=== PATIENT | female | born 1995 | race Caucasian/White ===

== ENCOUNTER 2018-08-05 05:34 | Inpatient (IN) | payer OTHER ==
--- NOTE | 2018-08-04 20:42 | HP ---
ADMISSION DIAGNOSIS: 1. 37-week and 5-day intrauterine with dichorionic diamniotic twins for primary low-transverse section. 2. Stenosis of the right carotid artery. 3. Agenesis of the left kidney. HISTORY OF PRESENT ILLNESS: Jared is a 22-year-old white female, primigravida patient, with an uncomplicated dichorionic diamniotic twin , presenting at 37 weeks and 5 days for primary section. Noted the patient had spontaneous recurrence of twin gestation, which was diagnosed at 7 weeks' gestation by ultrasound with an EDC based on this ultrasound on 08/21/2018. Noted her LMP was 10/31/2017. She has had multiple ultrasounds done with [facility] as well as consultation, and noted excellent growth of both babies with normal S/D ratios, umbilical artery Dopplers. Normal RE continued well throughout the and had recommended delivery between 37 and 38 weeks' gestation. PAST MEDICAL HISTORY: Complicated by history of vesicoureteral reflux with agenesis of the left kidney as well as diagnosis of stenosis of right carotid artery noted as a child, but has remained asymptomatic and has had no treatment for this. No other previous hospitalizations or surgery. FAMILY HISTORY: Insignificant. Mother and father were living and healthy. SOCIAL HISTORY: She has never smoked. She does not drink alcohol or smoke cigarettes. She is a first breaker feeder and is currently . MEDICATIONS: Include: 1. vitamins. 2. Benadryl p.r.n. 3. Macrobid one daily, taking prophylactically due to agenesis of the kidney. ALLERGIES: SHE HAS NO KNOWN DRUG ALLERGIES. PHYSICAL EXAMINATION: Done on 08/04/2018. GENERAL: She is alert and oriented, in no apparent distress. HEENT: Oropharynx without erythema. NECK: Supple without lymphadenopathy. No JVD. LUNGS: Clear to auscultation. CARDIOVASCULAR: Regular rate and rhythm without murmur. ABDOMEN: Soft with a gravid uterus. Fundal height 43 cm. FHT for twin A is 160 and twin B 150. : Deferred at this time. EXTREMITIES: Noted she does have 2+ edema of her ankles and feet. SIGNIFICANT LABORATORY DATA: Include RPR nonreactive. Rubella nonimmune. HIV negative. Hepatitis B surface antigen negative. GBS negative. Hemoglobin done on 05/25/2018 of 11.3. ASSESSMENT: 1. 37-week and 5-day intrauterine with diamniotic dichorionic twin uncomplicated . 2. Stenosis of the right carotid artery, normal left carotid artery. 3. History of vesicoureteral reflux, repaired by Surgery. PLAN: Consult had been obtained as well as an echocardiogram with Dr. Mantilla, the outpatient case manager, who had recommended that she proceed with a for delivery due to the single carotid artery. Discussed risks, benefits, and alternatives with the patient and planned for primary section on 08/05/2018. Job ID: [id number]
[2018-08-05] MEDS ORDERED: MORPHINE 5 MG/10 ML PF VIAL ONE ×2 (06:29→08:13)
[2018-08-05] MEDS ORDERED: Ketorolac Tromethamine 30 MG/ML VIAL ONE ×4 (06:30→09:45)
[2018-08-05] MEDS ORDERED: PHENYLEPHRINE-NS 100 MCG/ML 10 ML SYRINGE ONE ×2 (06:30→09:45)
[2018-08-05] MEDS ORDERED: Oxytocin 10 UNITS/ML VIAL ONE ×3 (06:30→09:27)
[2018-08-05] MEDS ORDERED: Ondansetron PF 4 MG/2 ML Vial ONE ×4 (06:30→09:45)
[2018-08-05] MEDS ORDERED: Dexamethasone 4 mg/ml Vial ONE (06:30)
[2018-08-05] MEDS ORDERED: diphenhydrAMINE 50 MG/ML VIAL ONE (06:30)
[2018-08-05 06:35] VITALS: BMI 29.0
[2018-08-05] MEDS ORDERED: Bicitra 30 ML UDCUP ONE (07:20)
[2018-08-05] MEDS ORDERED: CEFAZOLIN 2 GM in Premix Bag 1 BAG IVPB SCH (07:34)
[2018-08-05] MEDS ORDERED: Lactated Ringer's 1,000 ML IV SCH ×2 (07:34→11:31)
[2018-08-05] MEDS ORDERED: Promethazine HCl 25 MG/ML VIAL IM PRN ×2 (07:34→09:25)
[2018-08-05] MEDS ORDERED: Ondansetron PF 4 MG/2 ML Vial IVP PRN ×3 (07:34→11:31)
[2018-08-05] MEDS ORDERED: Bicitra 30 ML UDCUP PO SCH (07:34)
[2018-08-05 07:46] LABS: Hemoglobin 13.1 g/dL (12.0-16.0); Mean Corpuscular HGB CONC 33.6 g/dL (32.0-36.0); Mean Corpuscular Hemoglobin 33.5 pg (27.0-31.0); Mean Corpuscular Volume 99.7 fL (78.0-98.0); Mean Platelet Volume 8.8 fL (7.4-10.4); Platelet Count 170 thou/uL (130-400); RBC Distribution Width 12.7 % (11.5-14.5); Red Blood Cell (RBC) Count 3.89 mill/uL (4.20-5.40); White Blood Cell (WBC) Count 8.6 thou/uL (4.8-10.8)
[2018-08-05] MEDS ORDERED: ePHEDrine/0.9% NaCl/PF SYRINGE 50 mg/10 ml ONE (08:14)
[2018-08-05 08:17] LABS: Syphilis Antibody Nonreactive (Nonreactive); Syphilis Antibody Index 0.03 S/CO (<1.00 Non-Reactive)
[2018-08-05 08:18] LABS: HBSAg Index 0.28 S/CO (0-0.99); Hep B Surf Ag Non-Reactive S/CO (NonReactive)
[2018-08-05] MEDS ORDERED: diphenhydrAMINE 50 MG/ML VIAL IVP PRN (09:25)
[2018-08-05] MEDS ORDERED: HYDROmorphone 2 MG/ML VIAL SLOW IVP PRN (09:25)
[2018-08-05] MEDS ORDERED: L&D-Morphine 4 MG/ML VIAL SLOW IVP PRN (09:25)
[2018-08-05] MEDS ORDERED: Eucerin (Mineral Oil/Petrolatum,White) 30 gm Jar TOP PRN (09:25)
[2018-08-05] MEDS ORDERED: Naloxone HCl 0.4 mg/ml Vial IVP PRN ×2 (09:25)
[2018-08-05] MEDS ORDERED: Meperidine HCl/PF 25 MG/ML VIAL SLOW IVP PRN (09:25)
[2018-08-05] MEDS ORDERED: Ondansetron HCl/PF 4 MG/2 ML Vial IVP PRN (09:25)
[2018-08-05] MEDS ORDERED: Naloxone HCl 0.4 mg/ml Vial IV PRN (09:25)
[2018-08-05] MEDS ORDERED: Promethazine HCl 25 MG SUPP PR PRN (09:25)
[2018-08-05] MEDS ORDERED: Ketorolac Tromethamine 30 MG/ML VIAL IVP SCH (09:30)
[2018-08-05] MEDS ORDERED: Communication Order-Pharmacy FS SCH (09:30)
[2018-08-05] MEDS ORDERED: Dexamethasone 20 MG/5 ML VIAL ONE (09:45)
[2018-08-05] MEDS ORDERED: ePHEDrine 50 MG/ML VIAL ONE (09:45)
[2018-08-05 10:40] LABS: HIV (1/2) Antibody/Antigen Non-Reactive (NonReactive); HIV 1/2 INDEX 0.11 S/CO (<1.00)
[2018-08-05] MEDS ORDERED: Bisacodyl 10 MG SUPP PR PRN (11:31)
[2018-08-05] MEDS ORDERED: Acetaminophen 325 MG TAB PO PRN (11:31)
[2018-08-05] MEDS ORDERED: diphenhydrAMINE 25 MG CAP PO PRN (11:31)
[2018-08-05] MEDS ORDERED: Lanolin Ointment 7 GM TUBE TOP PRN (11:31)
[2018-08-05] MEDS: Ibuprofen 800 MG TAB PO SCH (13:19)
[2018-08-05] MEDS: Ketorolac Tromethamine 30 MG/ML VIAL IVP PRN ×2 (13:30→20:22)
--- NOTE | 2018-08-05 15:56 | OP ---
DATE OF PROCEDURE: 08/05/2018 PREOPERATIVE DIAGNOSIS: A 37 week and 5 day intrauterine diamniotic dichorionic twin gestation. POSTOPERATIVE DIAGNOSIS: A 37 week and 5 day intrauterine diamniotic dichorionic twin gestation, status post delivery. PROCEDURE PERFORMED: Primary low-transverse section. ASSISTANTS: 1. Triston Yo MD. 2. Luciano Buckley MD. ANESTHESIA: Spinal anesthetic. DESCRIPTION OF PROCEDURE: After adequate spinal anesthetic, the patient was placed in the supine position. A Garcia catheter was placed. The abdomen was prepped and draped in the usual sterile technique. A Pfannenstiel incision was made in the inferior aspect of the abdomen. Subcutaneous tissue opened with sharp dissection, fascia opened with sharp dissection. Peritoneum opened with sharp and blunt dissection and noted that the abdomen was still with a gravid uterus. A bladder blade was placed and a low transverse incision was made on the uterus. Membranes were ruptured and clear fluid was encountered and baby A delivered from vertex presentation without difficulty. breathed and cried spontaneously. Cord was clamped and cut, and the was handed to the care of the Neonatology Team. Membranes were again ruptured for delivery of baby B, noted to delivered from vertex presentation without difficulty. Infant breathed and cried spontaneously. Cord was clamped and cut, and the infant was handed to the care of the Neonatology Team. Cord blood was obtained from each umbilical cord and additional clamp was placed over the cord for baby A. Placenta was delivered x2, appeared intact. A wet lap was used to wipe clean the uterus. Uterus was taken external to the abdominal cavity and wet lap was placed over the uterus. Bladder blade was replaced and the hysterotomy was closed in continuous fashion using 1 Monocryl suture. Hemostasis was adequate. A second layer was placed for imbrication. Again, hemostasis was noted to be adequate. There were no blood clots in the gutters. Uterus was replaced into the abdominal cavity. Gutters were again checked. There was no further bleeding and the peritoneum was then closed in continuous fashion using 2-0 chromic. Fascia was closed in continuous fashion using 0 Vicryl. Sponge and instrument counts were correct. Few bleeders were cauterized after irrigation of subcutaneous tissue and skin was then closed using caryl. There was an additional small pedunculated fleshy mole anterior to the incision site, this had been discussed with the patient and consent was signed previously for removal. This was excised with a sharp blade and cauterized for hemostasis and dressing was applied. The patient to go to recovery room in good condition. Estimated blood loss approximately 500 mL, QBL is pending. Noted that baby A is a viable female infant, weight 5 pounds and 12 ounces, Apgars 8 at one minute and 9 at five minutes. Baby B is a viable female , weight 5 pounds and 9 ounces, Apgars 8 at one minute and 9 at five minutes. Job ID: [id number]
[2018-08-05] MEDS: Simethicone Chewable 80 MG TAB PO PRN (20:26)
[2018-08-06] MEDS: Docusate Calcium (SURFAK) 240 MG CAP PO SCH ×3 (01:06→20:21)
[2018-08-06] MEDS: Ferrous Sulfate 325 MG TAB PO SCH ×3 (01:06→20:21)
[2018-08-06] MEDS: Ibuprofen 800 MG TAB PO SCH ×4 (01:06→20:21)
[2018-08-06] MEDS: Ketorolac Tromethamine 30 MG/ML VIAL IVP PRN (04:47)
[2018-08-06 06:27] LABS: Mean Corpuscular HGB CONC 35.4 g/dL (32.0-36.0); Mean Corpuscular Hemoglobin 35.3 pg (27.0-31.0); Mean Corpuscular Volume 99.9 fL (78.0-98.0); Mean Platelet Volume 8.1 fL (7.4-10.4); Platelet Count 122 thou/uL (130-400); RBC Distribution Width 12.4 % (11.5-14.5); Red Blood Cell (RBC) Count 3.11 mill/uL (4.20-5.40); White Blood Cell (WBC) Count 12.6 thou/uL (4.8-10.8)
--- NOTE | 2018-08-06 07:08 | PDOC.PP ---
Post Progress Note Post Day #: 1 Subjective: Pt resting in bed. Pt reports pain being well controlled at this time. Pt has not gotten up and moved much yet. Pt reports tolerating PO last night. Passing gas. Pt reports some heavy vaginal bleeding. Pt reports some mild leg swelling bilaterally which was there prior to delivery. Denies any chest pain, SOB. Denies any headache, lightheadness or dizziness. Denies any nausea or vomiting. PO intake tolerated: yes Flatus: yes Ambulation: yes Vital Signs (12 hours) Temp Pulse Resp BP Pulse Ox 08/06/18 05:23 98.1 F 57 L 18 110/58 L 08/05/18 23:45 98.0 F 55 L 17 111/56 L 08/05/18 20:00 98.1 F 57 L 18 115/60 99 Weight Weight 81.647 kg - Physical Examination General: NAD Cardiovascular: no m/r/g, RRR Respiratory: clear to auscultation bilaterally, non-labored breathing Abdominal: + bowel sounds, lochia (Reported as a heavier than normal period), no distention, appropriately TTP Fundus firm & at: Umbilicus Extremities: negative homans (B) Skin: CS incision dry & intact (Dry. Dressing intact. No sign of bleeding or drainage. Appropriately TTP.), no rash Result Diagrams: 08/06/18 06:14 Additional Labs: Post Labs Blood Type O POSITIVE 08/05/18 07:52 Hep Bs Antigen Non-Reactive S/CO (NonReactive) 08/05/18 06:29 (1) delivery delivered Code(s): O82 - ENCOUNTER FOR DELIVERY WITHOUT INDICATION Status: Acute (2) Kidney agenesis Code(s): Q60.2 - RENAL AGENESIS, UNSPECIFIED Status: Acute (3) Carotid stenosis, right Code(s): I65.21 - OCCLUSION AND STENOSIS OF RIGHT CAROTID ARTERY Status: Acute - Assessment/Plan 22 yo F delivered dichorionic diamniotic twins @ 37.5 weeks via primary C- section. Post Op -continue routine post care -Pain well controlled at this time. Continue current pain regimen -- continue counseling and assistance. May consider customer consultant -Reports heavy lochia. Uterus firm and at umbilicus. continue to monitor. H&H stable this morning. L. Kidney Agenesis -Continue home abx prophylaxis. -Continue to encourage PO hydration Stenosis R. carotid Artery -stable
[2018-08-06] MEDS: HYDROcodone/Acetaminophen 5/325 mg Tablet PO PRN (09:57)
[2018-08-06] MEDS: Prenatal Vitamin 1 TAB PO SCH (09:57)
[2018-08-06] MEDS: Simethicone Chewable 80 MG TAB PO PRN ×2 (11:53→18:36)
[2018-08-06] MEDS: Acetaminophen/Codeine 30-300mg Tablet PO PRN (18:36)
[2018-08-07] MEDS: Acetaminophen/Codeine 30-300mg Tablet PO PRN ×4 (05:26→23:59)
[2018-08-07] MEDS: Ibuprofen 800 MG TAB PO SCH ×3 (05:26→21:24)
--- NOTE | 2018-08-07 07:22 | PDOC.PP ---
Post Progress Note Post Day #: 2 Subjective: Pt resting in bed. Pt reports having some increased pain with movement. Pt reports when she has pain medication it is well controlled. Pt reports getting up and walking around and taking a shower. Reports doing well. Tolerating PO. Reports passing gas. Denies BM. Pt reports lochia is getting process helper. Denies any chest pain or SOB. Reports swelling has resolved in legs. No other concerns or complaints at this time. PO intake tolerated: yes Flatus: yes Ambulation: yes Vital Signs (12 hours) Temp Pulse Resp BP Pulse Ox 08/07/18 05:20 97.5 F L 50 L 16 112/56 L 96 08/06/18 20:00 98.0 F 56 L 18 111/65 99 Weight Weight 81.647 kg - Physical Examination General: NAD Cardiovascular: no m/r/g, RRR Respiratory: clear to auscultation bilaterally, non-labored breathing Abdominal: + bowel sounds, lochia (Reports process helper than period at this time.), no distention, appropriately TTP Fundus firm & at: Below Umbilicus Extremities: negative homans (B) Skin: CS incision dry & intact (No drainage, bleeding or redness noted.), no rash Neurological: no gross focal deficits Psychiatric: A&Ox3, normal affect Result Diagrams: 08/06/18 06:14 Additional Labs: Post Labs Blood Type O POSITIVE 08/05/18 07:52 Hep Bs Antigen Non-Reactive S/CO (NonReactive) 08/05/18 06:29 (1) delivery delivered Code(s): O82 - ENCOUNTER FOR DELIVERY WITHOUT INDICATION Status: Acute (2) Kidney agenesis Code(s): Q60.2 - RENAL AGENESIS, UNSPECIFIED Status: Acute (3) Carotid stenosis, right Code(s): I65.21 - OCCLUSION AND STENOSIS OF RIGHT CAROTID ARTERY Status: Acute - Assessment/Plan 22 yo F delivered dichorionic diamniotic twins @ 37.5 weeks via primary C- section on 08/05/18. Post Op -continue routine post care -Pain well controlled at this time. Continue current pain regimen -Continue recommending ambulation. -- continue counseling and assistance. -Reports Light lochia. Uterus firm below umbilicus continue to monitor. H&H stable this morning. -Discussed routine incisional care and weight restrictions. L. Kidney Agenesis -Continue home abx prophylaxis. -Continue to encourage PO hydration Stenosis R. carotid Artery -stable
[2018-08-07] MEDS: Prenatal Vitamin 1 TAB PO SCH (09:28)
[2018-08-07] MEDS: Docusate Calcium (SURFAK) 240 MG CAP PO SCH ×2 (09:28→21:24)
[2018-08-07] MEDS: Nitrofurantoin Monohyd/M-Cryst 100 MG CAP PO SCH ×2 (09:28→21:24)
[2018-08-07] MEDS: Ferrous Sulfate 325 MG TAB PO SCH (09:29)
[2018-08-07] MEDS: Simethicone Chewable 80 MG TAB PO PRN (13:59)
--- NOTE | 2018-08-08 00:38 | PDOC.PP ---
Post Progress Note Post Day #: 3 Subjective: Doing well, ready to go home today in the morning if able PO intake tolerated: yes Flatus: yes Ambulation: yes Vital Signs (12 hours) Temp Pulse Resp BP Pulse Ox 08/07/18 21:00 98.2 F 51 L 18 110/60 98 Weight Weight 180 lb Vitals reviewed for last 24 hours - Physical Examination General: NAD Cardiovascular: no m/r/g Respiratory: clear to auscultation bilaterally, non-labored breathing Abdominal: + bowel sounds, lochia, no distention, appropriately TTP Extremities: negative homans (B) Skin: CS incision dry & intact (Caryl in place) Neurological: no gross focal deficits Psychiatric: A&Ox3, normal affect Result Diagrams: 08/06/18 06:14 Additional Labs: Post Labs Blood Type O POSITIVE 08/05/18 07:52 Hep Bs Antigen Non-Reactive S/CO (NonReactive) 08/05/18 06:29 (1) delivery delivered Code(s): O82 - ENCOUNTER FOR DELIVERY WITHOUT INDICATION Status: Acute - Assessment/Plan A/P: POD3 doing well...no acute issues. HX Macrobid use. No evidence ileus. Plan: ok to DC macrobid as now . Caryl preferably out on POD 5 or 7 (leave in as POD 3). OK For AM dsch. F/U with A Quique for caryl.
[2018-08-08] MEDS: Ferrous Sulfate 325 MG TAB PO SCH ×2 (03:57→09:30)
[2018-08-08] MEDS: Ibuprofen 800 MG TAB PO SCH ×2 (05:26→12:40)
[2018-08-08] MEDS: Docusate Calcium (SURFAK) 240 MG CAP PO SCH (09:28)
[2018-08-08] MEDS: Prenatal Vitamin 1 TAB PO SCH (09:28)
[2018-08-08] MEDS: HYDROcodone/Acetaminophen 5/325 mg Tablet PO PRN (09:28)
[2018-08-08] MEDS: Nitrofurantoin Monohyd/M-Cryst 100 MG CAP PO SCH (09:30)
[2018-08-08 09:39] VITALS: BP 123/65; TEMP 98.3
[2018-08-08] MEDS: Acetaminophen/Codeine 30-300mg Tablet PO PRN (09:40)
[2018-08-08] MEDS ORDERED: Measles/Mumps/Rubella 10 MCG/0.5 ML VIAL SC ONE (12:30)
== END 2018-08-08 13:50 | disposition home or self-care (01) | DRG 786 ==
LOC: L&D 05:34 → 3SW 11:35 → 3SE 08-06 12:36 → 3SW 08-06 12:36
PROVIDERS: ADMIT Family Medicine; ATTEND Family Medicine
PROC: 10D00Z1 Extraction of Products of Conception, Low, Open Approach (ICD-10-PCS; principal; 2018-08-05)
DX: O30.043 Twin pregnancy, dichorionic/diamniotic, third trimester (principal); O99.42 Diseases of the circulatory system complicating childbirth; Q60.0 Renal agenesis, unilateral; Z37.2 Twins, both liveborn; I65.21 Occlusion and stenosis of right carotid artery; O99.89 Other specified diseases and conditions complicating pregnancy, childbirth and the puerperium; Z3A.37 37 weeks gestation of pregnancy
CPT/HCPCS: 36415; 51702; 85027; 86780; 86850; 86900; 86901; 87340; 87389; 88305; 88307; 90707; J0690; J1100; J1200; J1885; J2270; J2405; J2590

== ENCOUNTER 2022-02-18 16:26 | Outpatient (CLI) | payer BC | END 2022-02-18 16:27 | disposition home or self-care (01) | LOC: BICRAD 16:26 | PROVIDERS: ATTEND Family Medicine | DX: S83.91XA Sprain of unspecified site of right knee, initial encounter (principal) ==

== ENCOUNTER 2022-03-26 09:43 | Outpatient (CLI) | payer BC | END 2022-03-26 09:44 | disposition home or self-care (01) | LOC: SCSMRI 09:43 | PROVIDERS: ATTEND Orthopaedic Surgery | DX: M23.91 Unspecified internal derangement of right knee (principal); S83.241A Other tear of medial meniscus, current injury, right knee, initial encounter ==

== ENCOUNTER 2022-07-18 16:27 | Outpatient (CLI) | payer BC | END 2022-07-18 16:28 | disposition home or self-care (01) | LOC: RAD 16:27 | PROVIDERS: ATTEND Family Medicine | DX: M21.961 Unspecified acquired deformity of right lower leg (principal) ==